=== PATIENT | male | born 1965 | race Caucasian/White ===

== ENCOUNTER 2019-07-20 11:06 | Emergency (ER) | payer OTHER ==
[2019-07-20 11:45] VITALS: TEMP 98.1; BMI 30.8
--- NOTE | 2019-07-20 13:21 | EKG ---
Test Reason : Blood Pressure : / mmHG Vent. Rate : 071 BPM Atrial Rate : 071 BPM P-R Int : 188 ms QRS Dur : 082 ms QT Int : 382 ms P-R-T Axes : 054 049 063 degrees QTc Int : 415 ms NORMAL SINUS RHYTHM NORMAL ECG NO PREVIOUS ECGS AVAILABLE Confirmed by Hernan Bernal ([id number]) on 07/20/2019 1:20:30 PM Referred By: Confirmed By:Hernan Bernal
--- NOTE | 2019-07-20 13:34 | PDOC ---
History of Present Illness - General Chief Complaint: Facial Droop Stated Complaint: SENT BY PCP Time Seen by Provider: 07/20/19 12:02 - History of Present Illness Initial Comments: 54 year old male with PMH of NIDDM presenting with sudden onset right sided facial paralysis three days prior. States that he feels as if he has problems on the left but he clearly has right sided paralysis. Unable to close right eye or drink water from the right side of his mouth. He does have unprotected intercourse with a partner outside of his marriage (his was unfortunately deported recently) but he states they are monogamous. He has denies fevers, chills, nausea, vomiting, penile discharge, dysuria, genital lesions, or other recent illness. 07/20/19 13:37 Past History - Past Medical History Allergies/Adverse Reactions: Allergies Allergy/AdvReac Type Severity Reaction Status Date / Time No Known Allergies Allergy Verified 07/20/19 11:40 Home Medications: Ambulatory Orders Acyclovir [Zovirax -] 400 mg PO 5XD 10 Days #50 tablet 07/20/19 Carboxymethylcellulose Sodium [Artificial Tears] 15 ml OD TID #3 drops 07/20/19 Carboxymethylcellulose Sodium [Artificial Tears] 15 ml OD TID 10 Days drops 07/20/19 Insulin Aspart [Novolog] 0 unit SQ ASDIR 07/20/19 Insulin Degludec [Tresiba] 0 unit SQ ASDIR 07/20/19 Losartan Potassium 50 mg PO DAILY 07/20/19 Ranitidine HCl 150 mg PO DAILY 07/20/19 Sitagliptin Phos/Metformin HCl [Janumet 50-1,000 mg Tablet] 1 each PO DAILY 07/20/19 predniSONE [Deltasone -] 60 mg PO DAILY 7 Days #21 tablet 07/20/19 COPD: No Diabetes: Yes - Psycho Social/Smoking Cessation Hx Smoking History: Never smoked Hx Alcohol Use: No Drug/Substance Use Hx: No Review of Systems - Review of Systems Constitutional: No: Chills, Diaphoresis, Fever HEENTM: No: Eye Pain, Blurred Vision Respiratory: No: Cough, Orthopnea, Shortness of Breath Cardiac (ROS): No: Chest Pain, Edema, Irregular Heart Rate ABD/GI: No: Diarrhea, Nausea, Vomiting : No: Burning, Dysuria, Discharge Integumentary: No: Bruising, Change in Color, Flushing, Lesions, Lumps Neurological: Yes: Other (right sided facial weakness). No: Headache, Numbness, Paresthesia, Tingling Psychiatric: No: Anxiety, Depression Hematologic/Lymphatic: No: Anemia, Blood Clots, Easy Bleeding *Physical Exam - Vital Signs Last Vital Signs Temp Pulse Resp BP Pulse Ox 98.1 F 80 16 104/67 100 07/20/19 11:43 07/20/19 11:43 07/20/19 11:43 07/20/19 11:43 07/20/19 12:13 - Physical Exam General Appearance: Yes: Nourished, Appropriately Dressed. No: Apparent Distress HEENT: positive: EOMI, KERRI, Normal Voice. negative: Normal ENT Inspection (entire right side paralyzed, unable to raise right eyebrow or smile on right. No numbness.), TMs Normal Neck: positive: Trachea midline, Normal Thyroid, Supple. negative: Tender, Rigid Respiratory/Chest: positive: Lungs Clear, Normal Breath Sounds. negative: Chest Tender, Respiratory Distress, Accessory Muscle Use Cardiovascular: positive: Regular Rhythm, Regular Rate Gastrointestinal/Abdominal: positive: Normal Bowel Sounds, Flat, Soft. negative: Tender Rectal Exam: negative: deferred, other Lymphatic: negative: Adenopathy, Tenderness Musculoskeletal: positive: Normal Inspection. negative: CVA Tenderness Extremity: positive: Normal Capillary Refill, Normal Inspection. negative: Normal Range of Motion, Tender Integumentary: positive: Normal Color, Dry, Warm Neurologic: positive: Fully Oriented, Alert, Normal Mood/Affect, Motor Strength 5/5, Facial Droop (right sided). negative: director case II-XII NML intact, Normal Response ED Treatment Course - LABORATORY CBC & Chemistry Diagram: 07/20/19 13:15 07/20/19 13:15 Medical Decision Making - Medical Decision Making 54 year old male with PMH of NIDDM presenting with right sided total facial paralysis of sudden onset three days prior. This is most concernign for Piedra's Palsy. Syphyllis and lyme labs sent. Discharged with steroids and acyclovir with callback placed. 07/20/19 13:48 Discharge - Discharge Information Problems reviewed: Yes Clinical Impression/Diagnosis: Piedra's palsy Disposition: HOME - Admission No - Additional Discharge Information Prescriptions: predniSONE [Deltasone -] 60 mg PO DAILY 7 Days #21 tablet Acyclovir [Zovirax -] 400 mg PO 5XD 10 Days #50 tablet - Follow up/Referral Referrals: Sky Willoughby MD [Primary Care Provider] - Clarence Moya MD [Staff Physician] - - Patient Discharge Instructions Patient Printed Discharge Instructions: DI for Piedra's Palsy Additional Instructions: Please take your acyclovir 5 times per day for 10 days. Please take the prednisone daily (3 pills a day). Please see the neurologist. Please call him and schedule an appointment and say that it is a follow up for Piedra's Palsy. Please tape your right eye shut at night and use the artificial tears daily. Please return to the ED if you have new or worsening symptoms. - Post Discharge Activity
[2019-07-20 13:46] LABS: BASO % 0.6 % (0-2.0); EOS % 5.2 % (0-4.5); HEMATOCRIT 39.8 % (35.4-49); HEMOGLOBIN 13.5 GM/dL (11.7-16.9); LYMPH % 30.2 % (8-40); MCH 28.7 pg (25.7-33.7); MCHC 33.8 g/dl (32.0-35.9); MEAN PLT VOLUME 9.2 fl (7.5-11.1); MONO % 13.7 % (3.8-10.2); NEUT % 50.3 % (42.8-82.8); PLATELET COUNT 133 K/MM3 (134-434); RBC 4.69 M/mm3 (4.00-5.60); RDW 15.4 % (11.9-15.9); WHITE BLOOD COUNT 4.5 K/mm3 (4.0-10.0)
[2019-07-20 14:15] VITALS: BP 108/74; PULSE 74
[2019-07-20 14:20] LABS: ALBUMIN 3.8 g/dl (3.4-5.0); BILIRUBIN,TOTAL 0.5 mg/dL (0.2-1); BLOOD UREA NITROGEN 18.6 mg/dL (7-18); CALCIUM 8.9 mg/dL (8.5-10.1); CREATININE 1.1 mg/dL (0.55-1.3); POTASSIUM 4.2 mmol/L (3.5-5.1); TOT PROT 7.5 g/dl (6.4-8.2)
--- NOTE | 2019-07-20 15:17 | PDOC ---
Documentation entered by Mayte Garg SCRIBE, acting as scribe for Viki Faustin MD. Viki Faustin MD: This documentation has been prepared by the Radha hay Nirvannie, SCRIBE, under my direction and personally reviewed by me in its entirety. I confirm that the documentation accurately reflects all work, treatment, procedures, and medical decision making performed by me. Attending Attestation - Resident Resident Name: Nitesh Carbajal - ED Attending Attestation I have performed the following: I have examined & evaluated the patient, The case was reviewed & discussed with the resident, I agree w/resident's findings & plan, Exceptions are as noted - HPI HPI: 07/20/19 13:56 The patient is a 54 year old male, with a significant past medical history of DM who presents to the emergency department with 3 days of a right facial droop. Patient notes he is unable to raise his right eyebrow, close his right eye, or drink with that side. Patient notes unprotected intercourse with a partner ou tside of his marriage (his was unfortunately deported recently) but he states they are monogamous. He denies any recent sick contacts. Allergies: NKDA Primary Care Physician: Dr. Antonio Willoughby - Physicial Exam PE: 07/20/19 15:16 awake alert lung clear bilat heart rrr no mrg abd soft nt nd ext wwp. CN VII defect right side face, facial drooop involving forehad. strength 5/5 all four ext. speech clear. - Medical Decision Making 07/20/19 15:16 54 yo male with right bells palsy. plan antivirals steroids ,lacrilube drops and dc home. Heart Score/ECG Review #1 General ECG Interpretation: Sinus Rhythm, Normal Rate (71), Normal Intervals, No acute ischemic changes
[2019-07-24 02:06] LABS: IgG Ab 23 kDa Band Absent (.); IgG Ab 28 kDa Band Absent (.)
== END 2019-07-20 15:38 | disposition home or self-care (01) ==
LOC: JER 11:06
DX: G51.0 Bell's palsy (principal); E11.9 Type 2 diabetes mellitus without complications
CPT/HCPCS: 36415; 80053; 85025; 86593; 86618; 93005; 93010; 99284-25

== ENCOUNTER 2022-10-20 16:54 | Inpatient (IN) | payer OTHER ==
[2022-10-20 19:09] LABS: BASO % 0.4 % (0-2.0); EOS % 0.8 % (0-4.5); HEMATOCRIT 17.1 % (35.4-49); LYMPH % 10.6 % (8-40); MCH 25.4 pg (25.7-33.7); MCHC 32.4 g/dl (32.0-35.9); MEAN CELL VOLUME 78.5 fl (80-96); MEAN PLT VOLUME 8.9 fl (7.5-11.1); MONO % 8.5 % (3.8-10.2); NEUT % 79.7 % (42.8-82.8); PLATELET COUNT 167 10^3/uL (134-434); RBC 2.18 M/mm3 (4.00-5.60); RDW 21.2 % (11.9-15.9); WHITE BLOOD COUNT 7.7 K/mm3 (4.0-10.0)
[2022-10-20 19:13] LABS: INR 1.05 (0.83-1.09); PROTHROMBIN TIME (PATIENT) 12.2 SEC (9.7-13.0)
[2022-10-20 19:16] LABS: ACTIVATED PTT 24.9 SECONDS (25.2-36.5)
[2022-10-20 19:18] LABS: HEMOGLOBIN 5.5 GM/dL (11.7-16.9)
[2022-10-20 19:27] LABS: POTASSIUM 4.5 mmol/L (3.5-5.1)
[2022-10-20 19:29] LABS: CALCIUM 8.6 mg/dL (8.5-10.1)
[2022-10-20 19:29] LABS: EPI CELLS 7 /uL (0-25.1); HYALINE CASTS 1 /uL (0-3.1); PH,URINE 5.5 (5.0-8.0); URINE APPEARANCE CLEAR; URINE BACTERIA 23 /uL (0-1359); URINE BILIRUBIN NEGATIVE (NEGATIVE); URINE COLOR YELLOW; URINE GLUCOSE (UA) 3+ (NEGATIVE); URINE KETONE NEGATIVE (NEGATIVE); URINE LEUK ESTERASE 2+ (NEGATIVE); URINE NITRITE NEGATIVE (NEGATIVE); URINE PROTEIN NEGATIVE (NEGATIVE); URINE RBC 17 /uL (0-23.9); URINE UROBILINOGEN 0.2 mg/dL (0.2-1.0); URINE WBC 681 /uL (0-25.8)
[2022-10-20 19:30] LABS: ALBUMIN 2.6 g/dl (3.4-5.0); BLOOD UREA NITROGEN 36.4 mg/dL (7-18)
[2022-10-20 19:33] LABS: CREATININE 1.1 mg/dL (0.55-1.3)
[2022-10-20 19:34] LABS: BILIRUBIN,TOTAL 0.1 mg/dL (0.2-1); TOT PROT 5.7 g/dl (6.4-8.2)
[2022-10-20] MEDS ORDERED: ACETAMINOPHEN 1000 MG/100 ML BAG IVPB ONE (20:13)
[2022-10-20] MEDS ORDERED: PANTOPRAZOLE SODIUM 40 MG VIAL IVPUSH ONE (20:28)
[2022-10-20] MEDS ORDERED: OCTREOTIDE ACETATE 50 MCG/1 ML - 1 ML VIAL IVPUSH ONE (20:29)
[2022-10-20] MEDS ORDERED: PANTOPRAZOLE SODIUM 80 MG in SODIUM CHLORIDE 100 ML IVPB SCH (20:29)
[2022-10-20] MEDS ORDERED: OCTREOTIDE ACETATE 200 MCG, OCTREOTIDE ACETATE 1,000 MCG in DEXTROSE 5%-WATER - 496 ML IVPB SCH (20:30)
[2022-10-20] MEDS ORDERED: PANTOPRAZOLE SODIUM 80 MG/200 ML BAG IVPB ONE (20:50)
[2022-10-20] MEDS ORDERED: INSULIN (NOVOLOG) ASPART 100 UNITS/ML 10ML VIAL SQ ONE (20:56)
[2022-10-20] MEDS ORDERED: OCTREOTIDE ACETATE 100 MCG/1 ML ONE (21:11)
[2022-10-20 21:36] LABS: ANISOCYTOSIS 1+; MACROCYTOSIS 0
[2022-10-20] MEDS ORDERED: DEXTROSE 5%-0.45% SALINE 1,000 ML IV SCH (22:15)
[2022-10-21 00:13] VITALS: BMI 23.4
[2022-10-21] MEDS: SODIUM CHLORIDE 0.45% 1,000 ML IV SCH ×2 (04:51→21:50)
[2022-10-21] MEDS: INSULIN SLIDING SCALE (NOVOLOG) 1 VIAL SQ SCH ×4 (06:00→21:46)
[2022-10-21 08:11] LABS: BASO % 0.5 % (0-2.0); EOS % 4.4 % (0-4.5); HEMATOCRIT 25.3 % (35.4-49); HEMOGLOBIN 8.5 GM/dL (11.7-16.9); LYMPH % 14.2 % (8-40); MCH 26.4 pg (25.7-33.7); MCHC 33.4 g/dl (32.0-35.9); MEAN CELL VOLUME 79.1 fl (80-96); MEAN PLT VOLUME 8.1 fl (7.5-11.1); NEUT % 67.9 % (42.8-82.8); PLATELET COUNT 175 10^3/uL (134-434); RBC 3.21 M/mm3 (4.00-5.60); RDW 18.9 % (11.9-15.9); WHITE BLOOD COUNT 6.1 K/mm3 (4.0-10.0)
[2022-10-21 08:19] LABS: POTASSIUM 4.3 mmol/L (3.5-5.1)
[2022-10-21 08:22] LABS: CALCIUM 8.5 mg/dL (8.5-10.1)
[2022-10-21 08:23] LABS: ALBUMIN 2.6 g/dl (3.4-5.0); BLOOD UREA NITROGEN 28.4 mg/dL (7-18)
[2022-10-21 08:26] LABS: CREATININE 0.9 mg/dL (0.55-1.3)
[2022-10-21 08:27] LABS: BILIRUBIN,TOTAL 0.9 mg/dL (0.2-1); TOT PROT 6.1 g/dl (6.4-8.2)
[2022-10-21] MEDS: TAMSULOSIN HCL 0.4 MG CAP PO SCH (08:30)
[2022-10-21] MEDS ORDERED: ACETAMINOPHEN 1000 MG/100 ML BAG IVPB ONE (10:00)
[2022-10-21] MEDS ORDERED: PEG 3350/NA SULF BICARB CL/KCL 4000 ML SOLN.RECON PO ONE (15:25)
[2022-10-21] MEDS ORDERED: INSULIN (NOVOLOG) ASPART 100 UNITS/ML 10ML VIAL ONE ×2 (16:43→21:43)
[2022-10-21] MEDS ORDERED: BISACODYL 5 MG TABLET.DR (FP) PO ONE (20:00)
[2022-10-22] MEDS: INSULIN SLIDING SCALE (NOVOLOG) 1 VIAL SQ SCH ×4 (06:26→21:51)
[2022-10-22 08:17] LABS: BASO % 0.5 % (0-2.0); EOS % 5.4 % (0-4.5); HEMATOCRIT 23.9 % (35.4-49); LYMPH % 18.8 % (8-40); MCH 27.4 pg (25.7-33.7); MCHC 33.6 g/dl (32.0-35.9); MEAN CELL VOLUME 81.6 fl (80-96); MEAN PLT VOLUME 8.1 fl (7.5-11.1); MONO % 12.8 % (3.8-10.2); NEUT % 62.5 % (42.8-82.8); PLATELET COUNT 180 10^3/uL (134-434); RBC 2.93 M/mm3 (4.00-5.60); RDW 18.8 % (11.9-15.9); WHITE BLOOD COUNT 4.9 K/mm3 (4.0-10.0)
[2022-10-22 08:35] LABS: POTASSIUM 3.9 mmol/L (3.5-5.1)
[2022-10-22] MEDS: TAMSULOSIN HCL 0.4 MG CAP PO SCH (08:35)
[2022-10-22 08:44] LABS: ALBUMIN 2.5 g/dl (3.4-5.0); BLOOD UREA NITROGEN 14.5 mg/dL (7-18); CALCIUM 8.5 mg/dL (8.5-10.1)
[2022-10-22 08:47] LABS: CREATININE 0.8 mg/dL (0.55-1.3)
[2022-10-22 08:48] LABS: BILIRUBIN,TOTAL 0.5 mg/dL (0.2-1)
[2022-10-22] MEDS: PANTOPRAZOLE 40 MG TABLET PO SCH (09:50)
[2022-10-22] MEDS ORDERED: INSULIN (NOVOLOG) ASPART 100 UNITS/ML 10ML VIAL ONE ×3 (13:26→21:49)
[2022-10-22] MEDS ORDERED: ACETAMINOPHEN 325 MG TABLET (FP) PO ONE (20:55)
[2022-10-22] MEDS: SODIUM CHLORIDE 0.45% 1,000 ML IV SCH (21:54)
[2022-10-23] MEDS ORDERED: INSULIN (NOVOLOG) ASPART 100 UNITS/ML 10ML VIAL ONE (06:00)
[2022-10-23] MEDS: INSULIN SLIDING SCALE (NOVOLOG) 1 VIAL SQ SCH ×4 (06:08→23:31)
[2022-10-23 08:16] LABS: BASO % 0.7 % (0-2.0); EOS % 5.3 % (0-4.5); HEMATOCRIT 26.2 % (35.4-49); HEMOGLOBIN 8.8 GM/dL (11.7-16.9); LYMPH % 21.2 % (8-40); MCH 27.3 pg (25.7-33.7); MCHC 33.5 g/dl (32.0-35.9); MEAN CELL VOLUME 81.5 fl (80-96); MONO % 11.2 % (3.8-10.2); NEUT % 61.6 % (42.8-82.8); PLATELET COUNT 188 10^3/uL (134-434); RBC 3.21 M/mm3 (4.00-5.60); RDW 18.9 % (11.9-15.9); WHITE BLOOD COUNT 5.2 K/mm3 (4.0-10.0)
[2022-10-23 08:21] LABS: POTASSIUM 4.2 mmol/L (3.5-5.1)
[2022-10-23 08:36] LABS: CALCIUM 8.5 mg/dL (8.5-10.1)
[2022-10-23 08:38] LABS: BLOOD UREA NITROGEN 9.2 mg/dL (7-18)
[2022-10-23 08:40] LABS: ALBUMIN 2.6 g/dl (3.4-5.0)
[2022-10-23 08:41] LABS: BILIRUBIN,TOTAL 0.4 mg/dL (0.2-1); CREATININE 0.8 mg/dL (0.55-1.3); TOT PROT 6.3 g/dl (6.4-8.2)
[2022-10-23] MEDS: TAMSULOSIN HCL 0.4 MG CAP PO SCH (09:03)
[2022-10-23] MEDS: PANTOPRAZOLE 40 MG TABLET PO SCH (09:03)
[2022-10-23] MEDS: SODIUM CHLORIDE 0.45% 1,000 ML IV SCH ×2 (17:05→23:29)
[2022-10-24] MEDS: INSULIN SLIDING SCALE (NOVOLOG) 1 VIAL SQ SCH ×4 (06:45→21:29)
[2022-10-24] MEDS: PANTOPRAZOLE 40 MG TABLET PO SCH (10:01)
[2022-10-24] MEDS: TAMSULOSIN HCL 0.4 MG CAP PO SCH (10:01)
[2022-10-24] MEDS ORDERED: INSULIN (NOVOLOG) ASPART 100 UNITS/ML 10ML VIAL ONE (21:28)
[2022-10-24] MEDS: SODIUM CHLORIDE 0.45% 1,000 ML IV SCH (21:30)
[2022-10-25] MEDS ORDERED: INSULIN (NOVOLOG) ASPART 100 UNITS/ML 10ML VIAL ONE ×3 (05:41→22:16)
[2022-10-25] MEDS: INSULIN SLIDING SCALE (NOVOLOG) 1 VIAL SQ SCH ×4 (06:23→22:38)
[2022-10-25] MEDS: PANTOPRAZOLE 40 MG TABLET PO SCH (09:38)
[2022-10-25] MEDS: TAMSULOSIN HCL 0.4 MG CAP PO SCH (09:38)
[2022-10-25] MEDS ORDERED: MAG HYDROX/AL HYDROX/SIMETH 30 ML UNIT-DOSE CUP PO ONE (22:45)
[2022-10-26] MEDS: INSULIN SLIDING SCALE (NOVOLOG) 1 VIAL SQ SCH ×4 (06:09→22:05)
[2022-10-26] MEDS ORDERED: INSULIN (NOVOLOG) ASPART 100 UNITS/ML 10ML VIAL ONE ×3 (06:12→21:44)
[2022-10-26 06:40] LABS: BASO % 0.6 % (0-2.0); EOS % 6.6 % (0-4.5); HEMATOCRIT 25.6 % (35.4-49); HEMOGLOBIN 8.3 GM/dL (11.7-16.9); LYMPH % 20.5 % (8-40); MCH 26.5 pg (25.7-33.7); MCHC 32.7 g/dl (32.0-35.9); MEAN CELL VOLUME 81.2 fl (80-96); MEAN PLT VOLUME 8.1 fl (7.5-11.1); MONO % 11.7 % (3.8-10.2); NEUT % 60.6 % (42.8-82.8); PLATELET COUNT 201 10^3/uL (134-434); RBC 3.15 M/mm3 (4.00-5.60); RDW 18.1 % (11.9-15.9); WHITE BLOOD COUNT 4.5 K/mm3 (4.0-10.0)
[2022-10-26 06:57] LABS: POTASSIUM 4.3 mmol/L (3.5-5.1)
[2022-10-26 06:59] LABS: CALCIUM 8.4 mg/dL (8.5-10.1)
[2022-10-26 07:00] LABS: ALBUMIN 2.7 g/dl (3.4-5.0); BLOOD UREA NITROGEN 10.4 mg/dL (7-18)
[2022-10-26 07:03] LABS: CREATININE 0.9 mg/dL (0.55-1.3)
[2022-10-26 07:04] LABS: TOT PROT 6.4 g/dl (6.4-8.2)
[2022-10-26 07:05] LABS: BILIRUBIN,TOTAL 0.4 mg/dL (0.2-1)
[2022-10-26] MEDS: TAMSULOSIN HCL 0.4 MG CAP PO SCH (09:55)
[2022-10-26] MEDS: PANTOPRAZOLE 40 MG TABLET PO SCH (09:55)
[2022-10-27] MEDS: INSULIN SLIDING SCALE (NOVOLOG) 1 VIAL SQ SCH ×4 (06:36→21:55)
[2022-10-27] MEDS: TAMSULOSIN HCL 0.4 MG CAP PO SCH (09:09)
[2022-10-27] MEDS: PANTOPRAZOLE 40 MG TABLET PO SCH (09:09)
[2022-10-27] MEDS ORDERED: INSULIN (NOVOLOG) ASPART 100 UNITS/ML 10ML VIAL ONE ×3 (11:55→21:33)
[2022-10-28] MEDS ORDERED: INSULIN (NOVOLOG) ASPART 100 UNITS/ML 10ML VIAL ONE (05:44)
[2022-10-28] MEDS: INSULIN SLIDING SCALE (NOVOLOG) 1 VIAL SQ SCH ×3 (06:13→17:04)
[2022-10-28 07:30] LABS: BASO % 0.7 % (0-2.0); EOS % 7.4 % (0-4.5); HEMATOCRIT 25.7 % (35.4-49); HEMOGLOBIN 8.5 GM/dL (11.7-16.9); LYMPH % 18.5 % (8-40); MCH 26.9 pg (25.7-33.7); MCHC 33.1 g/dl (32.0-35.9); MEAN CELL VOLUME 81.3 fl (80-96); MEAN PLT VOLUME 8.6 fl (7.5-11.1); MONO % 9.9 % (3.8-10.2); NEUT % 63.5 % (42.8-82.8); PLATELET COUNT 210 10^3/uL (134-434); RBC 3.16 M/mm3 (4.00-5.60); RDW 17.5 % (11.9-15.9); WHITE BLOOD COUNT 4.2 K/mm3 (4.0-10.0)
[2022-10-28 07:36] LABS: POTASSIUM 4.6 mmol/L (3.5-5.1)
[2022-10-28 07:39] LABS: ALBUMIN 2.9 g/dl (3.4-5.0); BLOOD UREA NITROGEN 18.5 mg/dL (7-18)
[2022-10-28 07:40] LABS: CALCIUM 8.8 mg/dL (8.5-10.1)
[2022-10-28 07:42] LABS: CREATININE 1.1 mg/dL (0.55-1.3)
[2022-10-28 07:43] LABS: BILIRUBIN,TOTAL 0.3 mg/dL (0.2-1); TOT PROT 6.6 g/dl (6.4-8.2)
[2022-10-28] MEDS: PANTOPRAZOLE 40 MG TABLET PO SCH (09:56)
[2022-10-28] MEDS: TAMSULOSIN HCL 0.4 MG CAP PO SCH (09:56)
[2022-10-28 14:46] VITALS: PULSE 79; RESP 22; TEMP 98.2
[2022-10-28 14:52] VITALS: BP 100/50
== END 2022-10-28 18:33 | disposition home or self-care (01) | DRG 378 ==
LOC: JER 16:54 → JERBED 20:23 → J4W 21:53
PROVIDERS: ADMIT Internal Medicine; ATTEND Internal Medicine
PROC: 0DBA8ZX Excision of Jejunum, Via Natural or Artificial Opening Endoscopic, Diagnostic (ICD-10-PCS; 2022-10-21)
PROC: 0DB98ZX Excision of Duodenum, Via Natural or Artificial Opening Endoscopic, Diagnostic (ICD-10-PCS; principal; 2022-10-21 13:45)
PROC: 0DB68ZX Excision of Stomach, Via Natural or Artificial Opening Endoscopic, Diagnostic (ICD-10-PCS; 2022-10-21 13:45)
PROC: 0DBB8ZX Excision of Ileum, Via Natural or Artificial Opening Endoscopic, Diagnostic (ICD-10-PCS; 2022-10-22)
DX: K92.2 Gastrointestinal hemorrhage, unspecified (principal); D62 Acute posthemorrhagic anemia; E11.9 Type 2 diabetes mellitus without complications; K21.9 Gastro-esophageal reflux disease without esophagitis; R63.4 Abnormal weight loss; F10.10 Alcohol abuse, uncomplicated; K29.60 Other gastritis without bleeding; K63.5 Polyp of colon; K44.9 Diaphragmatic hernia without obstruction or gangrene; Z79.4 Long term (current) use of insulin; K64.8 Other hemorrhoids; N40.0 Benign prostatic hyperplasia without lower urinary tract symptoms; D64.9 Anemia, unspecified; R91.1 Solitary pulmonary nodule; R59.0 Localized enlarged lymph nodes
CPT/HCPCS: 36415; 36430; 71045-TC-FY; 74177-TC; 80053; 81003; 82150; 82272; 82378; 82728; 82962; 83540; 83550; 83690; 84484; 85025; 85045; 85610; 85730; 86140; 86850; 86900; 86901; 86922; 87086; 88305-TC; 93005; 93010; 99285-25; P9038; P9058; Q9967

== ENCOUNTER 2023-06-17 02:16 | Emergency (ER) | payer OTHER ==
[2023-06-17 02:30] VITALS: RESP 18; BMI 21.4
[2023-06-17 02:46] VITALS: TEMP 98.4
[2023-06-17] MEDS: LACTATED RINGERS SOLUTION 1000 ML INFUS.BAG IV ONE (04:30)
[2023-06-17] MEDS ORDERED: ONDANSETRON 4 MG/2 ML VIAL ONE (04:32)
[2023-06-17] MEDS ORDERED: PIPERACILLIN/TAZOB 4.5 GM 4.5 GM/100 ML BAG IVPB ONE (04:32)
[2023-06-17] MEDS ORDERED: VANCOMYCIN 1 GRAM (PRE-DOCKED) 1,000 MG/250 ML BAG IVPB ONE (04:32)
[2023-06-17] MEDS: morphine SULFATE 4 MG/ML VIAL IM ONE (04:40)
[2023-06-17 04:43] LABS: HEMATOCRIT 23.8 % (35.4-49); HEMOGLOBIN 7.7 GM/dL (11.7-16.9); MCH 23.7 pg (25.7-33.7); MCHC 32.2 g/dl (32.0-35.9); MEAN CELL VOLUME 73.6 fl (80-96); MEAN PLT VOLUME 7.6 fl (7.5-11.1); PLATELET COUNT 553 10^3/uL (134-434); RBC 3.24 M/mm3 (4.00-5.60); RDW 25.9 % (11.9-15.9); WHITE BLOOD COUNT 24.2 K/mm3 (4.0-10.0)
[2023-06-17 04:44] VITALS: BP 95/56
[2023-06-17] MEDS: PIPERACILLIN/TAZOB 4.5 GM 4.5 GM in DEXTROSE 5%-WATER 100 ML IVPB ONE (04:45)
[2023-06-17] MEDS: ONDANSETRON 4 MG/2 ML VIAL IVPUSH ONE (04:45)
[2023-06-17 04:58] VITALS: PULSE 80
[2023-06-17 05:01] LABS: INR 1.2 (0.83-1.09); PROTHROMBIN TIME (PATIENT) 13.9 SEC (9.7-13.0)
[2023-06-17 05:02] LABS: POTASSIUM 4.7 mmol/L (3.5-5.1); VENOUS O2 SATURATION 79.1 % (70-80); VENOUS PCO2 38.5 mmHg (38-52); VENOUS PH 7.404 (7.310-7.410)
[2023-06-17 05:04] LABS: ACTIVATED PTT 29.9 SECONDS (25.2-36.5); ALBUMIN 2.2 g/dl (3.4-5.0); BLOOD UREA NITROGEN 30.1 mg/dL (7-18); CALCIUM 8.9 mg/dL (8.5-10.1)
[2023-06-17 05:07] LABS: CREATININE 1.2 mg/dL (0.55-1.3)
[2023-06-17 05:09] LABS: BILIRUBIN,TOTAL 0.4 mg/dL (0.2-1); TOT PROT 6.7 g/dl (6.4-8.2)
[2023-06-17] MEDS: VANCOMYCIN 1,000 MG in DEXTROSE 5%-WATER - 250 ML IVPB ONE (05:09)
[2023-06-17 07:10] LABS: OVALOCYTE 1+
[2023-06-17 07:11] LABS: PLATELET ESTIMATE 550; ROULEAU 1+
== END 2023-06-17 05:38 | disposition short-term general hospital (02) ==
LOC: JER 02:16
PROC: 3E03329 Introduction of Other Anti-infective into Peripheral Vein, Percutaneous Approach (ICD-10-PCS; principal; 2023-06-17)
PROC: 3E03329 Introduction of Other Anti-infective into Peripheral Vein, Percutaneous Approach (ICD-10-PCS; 2023-06-17)
PROC: 3E033GC Introduction of Other Therapeutic Substance into Peripheral Vein, Percutaneous Approach (ICD-10-PCS; 2023-06-17)
PROC: 3E033GC Introduction of Other Therapeutic Substance into Peripheral Vein, Percutaneous Approach (ICD-10-PCS; 2023-06-17)
DX: R10.12 Left upper quadrant pain (principal); R10.32 Left lower quadrant pain; L02.211 Cutaneous abscess of abdominal wall; Z20.822 Contact with and (suspected) exposure to COVID-19
CPT/HCPCS: 0241U-QW; 36415; 80053; 82803; 83605; 85025; 85610; 85730; 86850; 86900; 86901; 93005; 93010; 99285-25

== ENCOUNTER 2023-10-02 13:11 | Inpatient (IN) | payer OTHER ==
[2023-10-02] MEDS: ONDANSETRON 4 MG/2 ML VIAL IVPUSH ONE (13:45)
[2023-10-02] MEDS: SODIUM CHLORIDE 1,000 ML IV STA ×3 (13:45→14:56)
[2023-10-02] MEDS: FAMOTIDINE 20 MG/50 ML IVPB 20 MG/50 ML MG IVPB ONE (13:45)
[2023-10-02] MEDS: ACETAMINOPHEN 1000 MG/100 ML BAG IVPB ONE (13:45)
[2023-10-02] MEDS ORDERED: ONDANSETRON 4 MG/2 ML VIAL ONE (13:52)
[2023-10-02] MEDS ORDERED: ACETAMINOPHEN INJECTION 100 ML IVPB ONE ×2 (13:52→21:11)
[2023-10-02] MEDS ORDERED: FAMOTIDINE 10 MG/ML VIAL IVPB ONE (13:53)
[2023-10-02 14:01] LABS: HEMATOCRIT 37.6 % (35.4-49); HEMOGLOBIN 12.5 GM/dL (11.7-16.9); MCH 30.6 pg (25.7-33.7); MCHC 33.2 g/dl (32.0-35.9); MEAN CELL VOLUME 92.1 fl (80-96); MEAN PLT VOLUME 7.8 fl (7.5-11.1); PLATELET COUNT 211 10^3/uL (134-434); RBC 4.09 M/mm3 (4.00-5.60); RDW 14.9 % (11.9-15.9); VENOUS BASE EXCESS -4.5 mmol/L (-2-2); VENOUS O2 SATURATION 30.7 % (70-80); VENOUS PCO2 41.3 mmHg (38-52); VENOUS PH 7.328 (7.310-7.410); WHITE BLOOD COUNT 8.1 K/mm3 (4.0-10.0)
[2023-10-02] MEDS ORDERED: PIPERACILLIN/TAZOB 4.5 GM 4.5 GM/100 ML BAG IVPB ONE (14:14)
[2023-10-02] MEDS ORDERED: FENTANYL CITRATE/PF 50 MCG/ML VIAL ONE ×2 (14:14→17:44)
[2023-10-02] MEDS: PIPERACILLIN/TAZOB 4.5 GM 4.5 GM in DEXTROSE 5%-WATER 100 ML IVPB ONE (14:18)
[2023-10-02 14:20] LABS: POTASSIUM 3.8 mmol/L (3.5-5.1)
[2023-10-02 14:21] LABS: MAGNESIUM 1.3 mg/dL (1.8-2.4)
[2023-10-02 14:24] LABS: CALCIUM 9.2 mg/dL (8.5-10.1)
[2023-10-02 14:25] LABS: BLOOD UREA NITROGEN 25.7 mg/dL (7-18)
[2023-10-02 14:28] LABS: CREATININE 1.2 mg/dL (0.55-1.3)
[2023-10-02 14:28] LABS: LACTIC ACID 4.4 mmol/L (0.4-2.0)
[2023-10-02 14:29] LABS: BILIRUBIN,TOTAL 0.6 mg/dL (0.2-1); TOT PROT 7.5 g/dl (6.4-8.2)
[2023-10-02 14:31] LABS: PROTHROMBIN TIME (PATIENT) 11.3 SEC (9.7-13.0)
[2023-10-02 14:57] LABS: ANISOCYTOSIS 1+; MACROCYTOSIS 0
[2023-10-02] MEDS ORDERED: VANCOMYCIN/WATER 1250 MG 1,250 MG/250 ML BAG IVPB ONE ×2 (15:06→15:07)
[2023-10-02] MEDS: VANCOMYCIN/WATER 1250 MG 1,250 MG/250 ML BAG IVPB ONE (15:08)
[2023-10-02] MEDS ORDERED: DEXTROSE 50%-WATER 25 GM/50 ML DISP.SYRIN ONE (15:43)
[2023-10-02] MEDS ORDERED: NOREPINEPHRINE 0.9 % NACL 8 MG/250 ML BAG IVPB ONE (15:46)
[2023-10-02] MEDS: DEXTROSE 50%-WATER - 25 GM/50 ML VIAL IVPUSH ONE (15:54)
[2023-10-02] MEDS ORDERED: LIDOCAINE 2.5%/PRILOCAINE 2.5% (5 Gram/TUBE) TP ONE (16:39)
[2023-10-02 16:44] LABS: LACTIC ACID 3.9 mmol/L (0.4-2.0)
[2023-10-02] MEDS: NOREPINEPHRINE BITARTRATE 4,000 MCG in DEXTROSE 5%-WATER - 496 ML IV SCH (17:36)
[2023-10-02] MEDS: HYDROCORTISONE SOD SUCCINATE 100 MG/2 ML VIAL IVPB ONE (17:37)
[2023-10-02] MEDS ORDERED: HYDROCORTISONE SOD SUCCINATE 100 MG/2 ML VIAL ONE (17:38)
[2023-10-02] MEDS: LACTATED RINGERS SOLUTION 1,000 ML/1,000 ML INFUS.BAG IV SCH (19:00)
[2023-10-02] MEDS ORDERED: PIPERACILLIN/TAZOB 4.5 GM 4.5 GM in DEXTROSE 5%-WATER 100 ML IVPB SCH (20:00)
[2023-10-02] MEDS ORDERED: HYDROmorphone HCl 2 MG/ML VIAL ONE (21:10)
[2023-10-02] MEDS: HYDROmorphone HCl 2 MG/ML VIAL IVPUSH PRN (21:30)
[2023-10-02] MEDS: ACETAMINOPHEN 1000 MG/100 ML BAG IVPB PRN (21:30)
[2023-10-02] MEDS ORDERED: INSULIN ASPART SLIDING SCALE (NOVOLOG) 1 VIAL SQ SCH (22:00)
[2023-10-02 22:39] LABS: HEMATOCRIT 32.1 % (35.4-49); HEMOGLOBIN 10.6 GM/dL (11.7-16.9); MCH 30.3 pg (25.7-33.7); MCHC 33.1 g/dl (32.0-35.9); MEAN CELL VOLUME 91.5 fl (80-96); MEAN PLT VOLUME 8.3 fl (7.5-11.1); PLATELET COUNT 170 10^3/uL (134-434); RBC 3.51 M/mm3 (4.00-5.60); RDW 15.4 % (11.9-15.9)
[2023-10-02 22:42] LABS: EPI CELLS 5 /uL (0-25.1); HYALINE CASTS 1 /uL (0-3.1); URINE APPEARANCE CLOUDY; URINE BACTERIA 1537 /uL (0-1359); URINE BILIRUBIN NEGATIVE (NEGATIVE); URINE COLOR YELLOW; URINE GLUCOSE (UA) 2+ (NEGATIVE); URINE KETONE TRACE (NEGATIVE); URINE LEUK ESTERASE 1+ (NEGATIVE); URINE NITRITE POSITIVE (NEGATIVE); URINE PROTEIN 2+ (NEGATIVE); URINE RBC 79 /uL (0-23.9); URINE UROBILINOGEN 0.2 mg/dL (0.2-1.0); URINE WBC 704 /uL (0-25.8)
[2023-10-02] MEDS: PIPERACILLIN/TAZOB 4.5 GM 4.5 GM in DEXTROSE 5%-WATER 100 ML IVPB SCH (22:46)
[2023-10-02] MEDS: NOREPINEPHRINE BITARTRATE/D5W 8 MG/250 ML BAG IVPB SCH (22:46)
[2023-10-02] MEDS: MUPIROCIN 2% TOPICAL OINTMENT FOR DECOLONIZATION NS SCH (22:46)
[2023-10-02] MEDS: CHLORHEXIDINE GLUCONATE 4% CLEANSER FOR DECOLONIZATION TP SCH (22:46)
[2023-10-02] MEDS: INSULIN ASPART SLIDING SCALE (NOVOLOG) 1 VIAL SQ SCH (22:47)
[2023-10-02 22:58] LABS: POTASSIUM 3.4 mmol/L (3.5-5.1)
[2023-10-02 23:01] LABS: BLOOD UREA NITROGEN 27.8 mg/dL (7-18)
[2023-10-02 23:04] LABS: CREATININE 1.5 mg/dL (0.55-1.3)
[2023-10-02 23:05] LABS: TOT PROT 5.7 g/dl (6.4-8.2)
[2023-10-02 23:06] LABS: BILIRUBIN,TOTAL 0.7 mg/dL (0.2-1)
[2023-10-02 23:15] LABS: ANISOCYTOSIS 1+; MACROCYTOSIS 0; OVALOCYTE 1+
[2023-10-02 23:18] LABS: PLATELET ESTIMATE ADEQUATE
[2023-10-02 23:20] LABS: LACTIC ACID 4.1 mmol/L (0.4-2.0)
[2023-10-02 23:22] LABS: WHITE BLOOD COUNT 31.8 K/mm3 (4.0-10.0)
[2023-10-02 23:46] LABS: YEAST NONE SEEN (NEGATIVE)
[2023-10-03] MEDS: HYDROmorphone HCl 2 MG/ML VIAL IVPUSH PRN (01:38)
[2023-10-03] MEDS: MAGNESIUM SULF 50% (8.12 MEQ/2 ML-1 GM VIAL) IVPB ONE (01:47)
[2023-10-03] MEDS: VANCOMYCIN/WATER FOR INJ (PEG) 1,000 MG/200 ML BAG IVPB SCH ×2 (02:02→14:48)
[2023-10-03] MEDS: ONDANSETRON 4 MG/2 ML VIAL IVPUSH ONE (04:33)
[2023-10-03] MEDS: HYDROmorphone HCl 2 MG/ML VIAL IVPUSH ONE (04:42)
[2023-10-03] MEDS: KCL 20 MEQ PREMIX BAG 20 MEQ/100 ML INFUS.BAG IVPB SCH (04:45)
[2023-10-03] MEDS ORDERED: VASopressin 20 UNITS/ML VIAL IV ONE (05:14)
[2023-10-03] MEDS: VASopressin 40 UNITS/100 ML BAG IV SCH (05:25)
[2023-10-03 08:34] LABS: INR 1.32 (0.83-1.09); PROTHROMBIN TIME (PATIENT) 15.1 SEC (9.7-13.0)
[2023-10-03 08:36] LABS: ACTIVATED PTT 35.3 SECONDS (25.2-36.5)
[2023-10-03 08:46] LABS: POTASSIUM 4.1 mmol/L (3.5-5.1)
[2023-10-03 08:47] LABS: CALCIUM 7.9 mg/dL (8.5-10.1)
[2023-10-03 08:48] LABS: ALBUMIN 2.9 g/dl (3.4-5.0); BLOOD UREA NITROGEN 31.1 mg/dL (7-18); MAGNESIUM 1.4 mg/dL (1.8-2.4)
[2023-10-03 08:51] LABS: CREATININE 1.4 mg/dL (0.55-1.3); PHOSPHOROUS 4.6 mg/dL (2.5-4.9)
[2023-10-03 08:52] LABS: BILIRUBIN,TOTAL 0.7 mg/dL (0.2-1); TOT PROT 5.7 g/dl (6.4-8.2)
[2023-10-03 08:55] LABS: HEMATOCRIT 31.7 % (35.4-49); HEMOGLOBIN 10.5 GM/dL (11.7-16.9); MCH 30.5 pg (25.7-33.7); MCHC 33.2 g/dl (32.0-35.9); MEAN CELL VOLUME 91.9 fl (80-96); MEAN PLT VOLUME 8.8 fl (7.5-11.1); PLATELET COUNT 161 10^3/uL (134-434); RBC 3.45 M/mm3 (4.00-5.60); RDW 15.2 % (11.9-15.9)
[2023-10-03] MEDS: PANTOPRAZOLE SODIUM 40 MG VIAL IVPUSH SCH ×2 (09:02→21:56)
[2023-10-03 09:06] LABS: WHITE BLOOD COUNT 42.2 K/mm3 (4.0-10.0)
[2023-10-03] MEDS: MAGNESIUM 2GM/50ML STERILE WATER IVPB IVPB ONE (09:56)
[2023-10-03] MEDS ORDERED: LACTATED RINGERS SOLUTION 1,000 ML/1,000 ML INFUS.BAG IV SCH (10:07)
[2023-10-03] MEDS: ONDANSETRON 4 MG/2 ML VIAL IVPUSH PRN (11:08)
[2023-10-03] MEDS: MEROPENEM 1 GM in DEXTROSE 5%-WATER 100 ML IVPB SCH (11:14)
[2023-10-03] MEDS: HYDROCORTISONE SOD SUCCINATE 100 MG/2 ML VIAL IVPUSH SCH (11:15)
[2023-10-03] MEDS: D5-LR+20 MEQ KCL - 20 MEQ/1,000 ML INFUS.BAG IV SCH (11:19)
[2023-10-03] MEDS: ACETAMINOPHEN 1000 MG/100 ML BAG IVPB PRN (14:51)
[2023-10-03] MEDS: INSULIN ASPART SLIDING SCALE (NOVOLOG) 1 VIAL SQ SCH (22:02)
[2023-10-03] MEDS ORDERED: INSULIN (NOVOLOG) ASPART 100 UNITS/ML 10ML VIAL ONE (22:28)
[2023-10-04 07:15] LABS: HEMATOCRIT 31.9 % (35.4-49); HEMOGLOBIN 10.7 GM/dL (11.7-16.9); MCH 30.4 pg (25.7-33.7); MCHC 33.6 g/dl (32.0-35.9); MEAN CELL VOLUME 90.6 fl (80-96); MEAN PLT VOLUME 9.5 fl (7.5-11.1); PLATELET COUNT 131 10^3/uL (134-434); RBC 3.52 M/mm3 (4.00-5.60); RDW 15.2 % (11.9-15.9)
[2023-10-04 07:20] LABS: POTASSIUM 4.5 mmol/L (3.5-5.1)
[2023-10-04 07:23] LABS: ALBUMIN 2.8 g/dl (3.4-5.0); BLOOD UREA NITROGEN 31.4 mg/dL (7-18); CALCIUM 7.6 mg/dL (8.5-10.1); MAGNESIUM 2.1 mg/dL (1.8-2.4)
[2023-10-04 07:25] LABS: BILIRUBIN,DIRECT 0.3 mg/dL (0.0-0.2)
[2023-10-04 07:26] LABS: CREATININE 0.9 mg/dL (0.55-1.3); PHOSPHOROUS 3.5 mg/dL (2.5-4.9)
[2023-10-04 07:27] LABS: BILIRUBIN,TOTAL 0.6 mg/dL (0.2-1); TOT PROT 5.9 g/dl (6.4-8.2)
[2023-10-04 08:06] LABS: WHITE BLOOD COUNT 41.8 K/mm3 (4.0-10.0)
[2023-10-04 09:55] LABS: ANISOCYTOSIS 0; HELMET CELLS 0; HOWELL-JOLLY BODIES 0; MACROCYTOSIS 0; OVALOCYTE 0; ROULEAU 0; SICKELED CELLS 0; TARGET CELLS 0; TEAR DROP CELLS 0; TOXIC GRANULATION 0
[2023-10-04] MEDS ORDERED: VASopressin 20 UNITS/ML VIAL IV ONE (16:03)
[2023-10-04] MEDS ORDERED: INSULIN (NOVOLOG) ASPART 100 UNITS/ML 10ML VIAL ONE ×2 (17:19→17:33)
[2023-10-05 07:03] LABS: HEMATOCRIT 30.1 % (35.4-49); MCH 30.1 pg (25.7-33.7); MCHC 33.2 g/dl (32.0-35.9); MEAN CELL VOLUME 90.5 fl (80-96); MEAN PLT VOLUME 9.6 fl (7.5-11.1); PLATELET COUNT 113 10^3/uL (134-434); RBC 3.32 M/mm3 (4.00-5.60); RDW 15.2 % (11.9-15.9); WHITE BLOOD COUNT 29.7 K/mm3 (4.0-10.0)
[2023-10-05 07:23] LABS: POTASSIUM 4.4 mmol/L (3.5-5.1)
[2023-10-05 07:26] LABS: ALBUMIN 2.8 g/dl (3.4-5.0); BLOOD UREA NITROGEN 43.7 mg/dL (7-18)
[2023-10-05 07:29] LABS: CREATININE 0.8 mg/dL (0.55-1.3); PHOSPHOROUS 2.4 mg/dL (2.5-4.9)
[2023-10-05 07:30] LABS: BILIRUBIN,TOTAL 0.5 mg/dL (0.2-1); TOT PROT 5.7 g/dl (6.4-8.2)
[2023-10-05 07:38] LABS: CALCIUM 8.8 mg/dL (8.5-10.1)
[2023-10-05 09:36] LABS: ANISOCYTOSIS 0; HELMET CELLS 0; HOWELL-JOLLY BODIES 0; MACROCYTOSIS 0; OVALOCYTE 0; ROULEAU 0; SICKELED CELLS 0; TARGET CELLS 0; TEAR DROP CELLS 0; TOXIC GRANULATION 0
[2023-10-06] MEDS ORDERED: INSULIN (NOVOLOG) ASPART 100 UNITS/ML 10ML VIAL ONE ×2 (06:09→11:19)
[2023-10-06 07:03] LABS: MCH 30.1 pg (25.7-33.7); MCHC 33.3 g/dl (32.0-35.9); MEAN CELL VOLUME 90.1 fl (80-96); MEAN PLT VOLUME 9.7 fl (7.5-11.1); PLATELET COUNT 128 10^3/uL (134-434); RBC 3.66 M/mm3 (4.00-5.60); RDW 14.9 % (11.9-15.9); WHITE BLOOD COUNT 14.9 K/mm3 (4.0-10.0)
[2023-10-06 07:26] LABS: POTASSIUM 4.4 mmol/L (3.5-5.1)
[2023-10-06 07:29] LABS: CALCIUM 8.5 mg/dL (8.5-10.1)
[2023-10-06 07:30] LABS: ALBUMIN 2.6 g/dl (3.4-5.0); BLOOD UREA NITROGEN 27.8 mg/dL (7-18); MAGNESIUM 1.7 mg/dL (1.8-2.4)
[2023-10-06 07:33] LABS: CREATININE 0.7 mg/dL (0.55-1.3); PHOSPHOROUS 2.6 mg/dL (2.5-4.9)
[2023-10-06 07:35] LABS: BILIRUBIN,TOTAL 0.5 mg/dL (0.2-1); TOT PROT 5.4 g/dl (6.4-8.2)
[2023-10-06 09:42] LABS: ANISOCYTOSIS 0; MACROCYTOSIS 0
[2023-10-06 10:13] VITALS: RESP 18
[2023-10-06] MEDS: HYDROCORTISONE SOD SUCCINATE 100 MG/2 ML VIAL IVPUSH SCH ×2 (15:40→17:22)
[2023-10-06] MEDS: INSULIN ASPART SLIDING SCALE (NOVOLOG) 1 VIAL SQ SCH (17:21)
[2023-10-06] MEDS: MEROPENEM 1 GM in DEXTROSE 5%-WATER 100 ML IVPB SCH (18:12)
[2023-10-06] MEDS ORDERED: ACETAMINOPHEN 325 MG TABLET (FP) PO PRN (18:33)
[2023-10-06] MEDS: HYDROmorphone HCl 2 MG/ML VIAL IVPUSH PRN (18:45)
[2023-10-06] MEDS: PANTOPRAZOLE SODIUM 40 MG VIAL IVPUSH SCH (21:14)
[2023-10-06] MEDS: ACETAMINOPHEN 325 MG TABLET (FP) PO PRN (22:15)
[2023-10-07 10:52] LABS: HEMATOCRIT 34.7 % (35.4-49); HEMOGLOBIN 11.7 GM/dL (11.7-16.9); MCH 30.2 pg (25.7-33.7); MCHC 33.7 g/dl (32.0-35.9); MEAN CELL VOLUME 89.5 fl (80-96); PLATELET COUNT 152 10^3/uL (134-434); RBC 3.88 M/mm3 (4.00-5.60); RDW 14.8 % (11.9-15.9); WHITE BLOOD COUNT 10.2 K/mm3 (4.0-10.0)
[2023-10-07 11:09] LABS: POTASSIUM 3.6 mmol/L (3.5-5.1)
[2023-10-07 11:11] LABS: BLOOD UREA NITROGEN 20.9 mg/dL (7-18); CALCIUM 8.8 mg/dL (8.5-10.1); MAGNESIUM 1.5 mg/dL (1.8-2.4)
[2023-10-07 11:12] LABS: ALBUMIN 2.7 g/dl (3.4-5.0)
[2023-10-07 11:14] LABS: CREATININE 0.7 mg/dL (0.55-1.3); PHOSPHOROUS 2.6 mg/dL (2.5-4.9)
[2023-10-07 11:16] LABS: TOT PROT 5.5 g/dl (6.4-8.2)
[2023-10-07 11:17] LABS: BILIRUBIN,TOTAL 0.5 mg/dL (0.2-1)
[2023-10-07 11:50] LABS: PLATELET ESTIMATE ADEQUATE
[2023-10-07] MEDS: MAGNESIUM OXIDE 400 MG TABLET (FP) PO ONE (13:43)
[2023-10-08] MEDS: HYDROmorphone HCl 2 MG/ML VIAL IVPUSH PRN (02:09)
[2023-10-08 10:03] LABS: BASO % 0.5 % (0-2.0); EOS % 2.5 % (0-4.5); HEMATOCRIT 36.2 % (35.4-49); HEMOGLOBIN 12.4 GM/dL (11.7-16.9); MCH 30.6 pg (25.7-33.7); MCHC 34.1 g/dl (32.0-35.9); MEAN CELL VOLUME 89.7 fl (80-96); MEAN PLT VOLUME 8.9 fl (7.5-11.1); MONO % 12.2 % (3.8-10.2); NEUT % 77.8 % (42.8-82.8); PLATELET COUNT 195 10^3/uL (134-434); RBC 4.03 M/mm3 (4.00-5.60); RDW 14.7 % (11.9-15.9); WHITE BLOOD COUNT 9.9 K/mm3 (4.0-10.0)
[2023-10-08 10:32] LABS: POTASSIUM 3.7 mmol/L (3.5-5.1)
[2023-10-08 10:33] LABS: ANISOCYTOSIS 0; MACROCYTOSIS 0
[2023-10-08 10:40] LABS: ALBUMIN 2.8 g/dl (3.4-5.0); BILIRUBIN,TOTAL 0.5 mg/dL (0.2-1); BLOOD UREA NITROGEN 16.4 mg/dL (7-18); CREATININE 0.6 mg/dL (0.55-1.3)
[2023-10-08 10:42] LABS: TOT PROT 5.9 g/dl (6.4-8.2)
[2023-10-08 10:43] LABS: CALCIUM 8.7 mg/dL (8.5-10.1)
[2023-10-08 14:41] VITALS: BMI 23.8
[2023-10-08] MEDS ORDERED: MAGNESIUM HYDROX 2400MG/30ML ORAL SUSPENSION 30 ML CUP PO PRN (18:07)
[2023-10-08] MEDS: SENNOSIDES/DOCUSATE COMBO (SENNA PLUS) TABLET (UD) PO PRN (21:29)
[2023-10-09] MEDS: HYDROmorphone HCl 2 MG/ML VIAL IVPB PRN (10:34)
[2023-10-10 06:58] VITALS: BP 123/67; PULSE 63; TEMP 98.3
[2023-10-10 09:08] LABS: HEMATOCRIT 35.9 % (35.4-49); HEMOGLOBIN 12.1 GM/dL (11.7-16.9); MCH 30.6 pg (25.7-33.7); MCHC 33.8 g/dl (32.0-35.9); MEAN CELL VOLUME 90.6 fl (80-96); MEAN PLT VOLUME 8.9 fl (7.5-11.1); PLATELET COUNT 233 10^3/uL (134-434); RBC 3.96 M/mm3 (4.00-5.60); RDW 15.3 % (11.9-15.9); WHITE BLOOD COUNT 8.7 K/mm3 (4.0-10.0)
[2023-10-10 09:16] LABS: POTASSIUM 4.1 mmol/L (3.5-5.1)
[2023-10-10 09:23] LABS: BLOOD UREA NITROGEN 14.4 mg/dL (7-18)
[2023-10-10 09:24] LABS: CREATININE 0.7 mg/dL (0.55-1.3)
[2023-10-10 09:26] LABS: BILIRUBIN,TOTAL 0.7 mg/dL (0.2-1); TOT PROT 5.9 g/dl (6.4-8.2)
[2023-10-10 10:16] LABS: PLATELET ESTIMATE ADEQUATE
== END 2023-10-10 13:38 | disposition home or self-care (01) | DRG 871 ==
LOC: JER 13:11 → JERBED 15:55 → JICU 18:32 → J5S 10-06 16:25
PROVIDERS: ADMIT Internal Medicine; ATTEND Internal Medicine
PROC: 05HF33Z Insertion of Infusion Device into Left Cephalic Vein, Percutaneous Approach (ICD-10-PCS; principal; 2023-10-02)
PROC: B54NZZA Ultrasonography of Left Upper Extremity Veins, Guidance (ICD-10-PCS; 2023-10-02)
PROC: 03HY32Z Insertion of Monitoring Device into Upper Artery, Percutaneous Approach (ICD-10-PCS; 2023-10-03)
PROC: 4A133B1 Monitoring of Arterial Pressure, Peripheral, Percutaneous Approach (ICD-10-PCS; 2023-10-03)
PROC: 4A133J1 Monitoring of Arterial Pulse, Peripheral, Percutaneous Approach (ICD-10-PCS; 2023-10-03)
DX: A41.9 Sepsis, unspecified organism (principal); R65.21 Severe sepsis with septic shock; C83.30 Diffuse large B-cell lymphoma, unspecified site; E87.1 Hypo-osmolality and hyponatremia; I10 Essential (primary) hypertension; E78.5 Hyperlipidemia, unspecified; E11.9 Type 2 diabetes mellitus without complications; D64.9 Anemia, unspecified; N40.0 Benign prostatic hyperplasia without lower urinary tract symptoms; K52.9 Noninfective gastroenteritis and colitis, unspecified
CPT/HCPCS: 0241U-QW; 36415; 71045-TC-FY; 72191-TC; 74018-TC-FY; 74175-TC; 80053; 80076; 81003; 82010; 82533; 82550; 82803; 82962; 83605; 83690; 83735; 83880; 84100; 84484; 85025; 85027; 85610; 85730; 86850; 86900; 86901; 87040; 87076; 87086; 93005; 93010; 97116-GP; 97161-GP; 99291; J0131; J3490; Q9967

== ENCOUNTER 2023-11-25 12:47 | Inpatient (IN) | payer OTHER ==
[2023-11-25] MEDS ORDERED: ONDANSETRON 4 MG/2 ML VIAL ONE (13:39)
[2023-11-25] MEDS ORDERED: ACETAMINOPHEN INJECTION 100 ML IVPB ONE (13:39)
[2023-11-25] MEDS ORDERED: FAMOTIDINE 20 MG/50 ML IVPB 20 MG/50 ML MG IVPB ONE (13:40)
[2023-11-25] MEDS: FAMOTIDINE 20 MG/50 ML IVPB 20 MG/50 ML MG IVPB ONE (14:06)
[2023-11-25] MEDS: SODIUM CHLORIDE 0.9% 500 ML INFUS.BAG IV ONE ×2 (14:06→18:41)
[2023-11-25] MEDS: ONDANSETRON 4 MG/2 ML VIAL IVPUSH ONE (14:06)
[2023-11-25] MEDS ORDERED: FENTANYL CITRATE/PF 50 MCG/ML VIAL ONE (14:17)
[2023-11-25] MEDS: ACETAMINOPHEN 1000 MG/100 ML BAG IVPB ONE (14:26)
[2023-11-25 14:27] LABS: HEMATOCRIT 41.2 % (35.4-49); HEMOGLOBIN 13.9 GM/dL (11.7-16.9); MCH 29.3 pg (25.7-33.7); MCHC 33.7 g/dl (32.0-35.9); MEAN CELL VOLUME 86.9 fl (80-96); MEAN PLT VOLUME 10.1 fl (7.5-11.1); PLATELET COUNT 204 10^3/uL (134-434); RBC 4.74 M/mm3 (4.00-5.60); RDW 15.7 % (11.9-15.9); WHITE BLOOD COUNT 11.2 K/mm3 (4.0-10.0)
[2023-11-25 14:38] LABS: CHLORIDE 102 mmol/L (98-107); SODIUM 136 mmol/L (136-145)
[2023-11-25 14:40] LABS: ALBUMIN 4.1 g/dl (3.4-5.0); CALCIUM 9.7 mg/dL (8.5-10.1); CO2 26 mmol/L (21-32)
[2023-11-25 14:41] LABS: BLOOD UREA NITROGEN 23.1 mg/dL (7-18); GLUCOSE,RANDOM 176 mg/dL (74-106)
[2023-11-25 14:44] LABS: CREATININE 0.9 mg/dL (0.55-1.3); SGOT/AST 55 U/L (15-37); SGPT/ALT 25 U/L (13-61)
[2023-11-25 14:46] LABS: ALK PHOS 101 U/L (45-117); ANION GAP 7 mmol/L (4-13); BILIRUBIN,TOTAL 0.8 mg/dL (0.2-1); POTASSIUM 6.2 mmol/L (3.5-5.1); TOT PROT 7.8 g/dl (6.4-8.2)
[2023-11-25 14:48] LABS: INR 0.99 (0.83-1.09); PROTHROMBIN TIME (PATIENT) 11.2 SEC (9.7-13.0)
[2023-11-25 14:50] LABS: ACTIVATED PTT 28.6 SECONDS (25.2-36.5)
[2023-11-25 15:19] LABS: EPI CELLS 6 /uL (0-25.1); HYALINE CASTS 1 /uL (0-3.1); PH,URINE 5.5 (5.0-8.0); URINE APPEARANCE CLOUDY; URINE BACTERIA >9,000 /uL (0-1359); URINE BILIRUBIN NEGATIVE (NEGATIVE); URINE COLOR YELLOW; URINE GLUCOSE (UA) 3+ (NEGATIVE); URINE KETONE 1+ (NEGATIVE); URINE LEUK ESTERASE 1+ (NEGATIVE); URINE NITRITE NEGATIVE (NEGATIVE); URINE PROTEIN 2+ (NEGATIVE); URINE RBC 17 /uL (0-23.9); URINE UROBILINOGEN 0.2 mg/dL (0.2-1.0); URINE WBC 468 /uL (0-25.8)
[2023-11-25 15:28] LABS: ANISOCYTOSIS 0; MACROCYTOSIS 0
[2023-11-25 15:29] LABS: POTASSIUM 4.1 mmol/L (3.5-5.1)
[2023-11-25 15:31] LABS: CALCIUM 8.5 mg/dL (8.5-10.1)
[2023-11-25 15:31] LABS: PLATELET ESTIMATE ADEQUATE
[2023-11-25 15:32] LABS: BLOOD UREA NITROGEN 24.7 mg/dL (7-18)
[2023-11-25 15:35] LABS: CREATININE 0.9 mg/dL (0.55-1.3)
[2023-11-25] MEDS: CEFTRIAXONE 1,000 MG in DEXTROSE 5%-WATER - 50 ML IVPB ONE (16:14)
[2023-11-25] MEDS ORDERED: PIPERACILLIN/TAZOB 4.5 GM 4.5 GM/100 ML BAG IVPB ONE (16:21)
[2023-11-25] MEDS: PIPERACILLIN/TAZOB 4.5 GM 4.5 GM in DEXTROSE 5%-WATER 100 ML IVPB ONE (16:27)
[2023-11-25] MEDS ORDERED: morphine SULFATE 4 MG/ML VIAL ONE (18:35)
[2023-11-25] MEDS: morphine CARPU-JECT 4 MG/1 ML DISP.SYRIN IVPUSH ONE (19:08)
[2023-11-25] MEDS ORDERED: fentaNYL CITRATE 250 MCG/5 ML VIAL ONE (19:35)
[2023-11-25] MEDS: fentaNYL CITRATE 250 MCG/5 ML VIAL IVPUSH ONE (19:49)
[2023-11-25] MEDS: DEXTROSE 5%-0.45% SALINE 1,000 ML IV SCH (21:02)
[2023-11-25 22:56] VITALS: BMI 23.1
[2023-11-25] MEDS: ACETAMINOPHEN 1000 MG/100 ML BAG IVPB PRN (23:40)
[2023-11-25] MEDS: SODIUM CHLORIDE 500 ML IV STA (23:41)
[2023-11-26 03:36] VITALS: RESP 18
[2023-11-26 10:13] LABS: BASO % 0.7 % (0-2.0); EOS % 2.2 % (0-4.5); HEMOGLOBIN 12.4 GM/dL (11.7-16.9); LYMPH % 12.9 % (8-40); MCHC 34.6 g/dl (32.0-35.9); MEAN CELL VOLUME 86.7 fl (80-96); MEAN PLT VOLUME 9.6 fl (7.5-11.1); MONO % 11.3 % (3.8-10.2); NEUT % 72.9 % (42.8-82.8); PLATELET COUNT 149 10^3/uL (134-434); RBC 4.15 M/mm3 (4.00-5.60); RDW 15.6 % (11.9-15.9); WHITE BLOOD COUNT 5.4 K/mm3 (4.0-10.0)
[2023-11-26 10:16] LABS: POTASSIUM 4.4 mmol/L (3.5-5.1)
[2023-11-26 10:22] LABS: BLOOD UREA NITROGEN 20.5 mg/dL (7-18); CALCIUM 8.9 mg/dL (8.5-10.1)
[2023-11-26 10:26] LABS: CREATININE 0.7 mg/dL (0.55-1.3)
[2023-11-26] MEDS: PIPERACILLIN/TAZOB 3.375 GM 3.375 GM in DEXTROSE 5%-WATER - 50 ML IVPB SCH (16:01)
[2023-11-26] MEDS: INSULIN ASPART SLIDING SCALE (NOVOLOG) 1 VIAL SQ SCH (21:55)
[2023-11-27] MEDS: ACETAMINOPHEN 1000 MG/100 ML BAG IVPB ONE (01:05)
[2023-11-27 06:42] VITALS: PULSE 63
[2023-11-27 10:42] VITALS: BP 124/74; TEMP 98.2
== END 2023-11-27 12:03 | disposition home or self-care (01) | DRG 389 ==
LOC: JER 12:47 → JERBED 17:53 → J5S 21:44
PROVIDERS: ADMIT Internal Medicine; ATTEND Internal Medicine
DX: K56.600 Partial intestinal obstruction, unspecified as to cause (principal); C83.30 Diffuse large B-cell lymphoma, unspecified site; N39.0 Urinary tract infection, site not specified; E10.9 Type 1 diabetes mellitus without complications; I10 Essential (primary) hypertension; E78.5 Hyperlipidemia, unspecified; Z93.3 Colostomy status; N40.0 Benign prostatic hyperplasia without lower urinary tract symptoms
CPT/HCPCS: 36415; 71045-TC-FY; 74177-TC; 80048; 80053; 81003; 82010; 82962; 83605; 83690; 84484; 85025; 85610; 85730; 87077; 87086; 93005; 93010; 99285-25; J0131; Q9967

== ENCOUNTER 2024-10-31 14:07 | Emergency (ER) | payer OTHER ==
[2024-10-31 14:55] VITALS: RESP 18; BMI 22.0
[2024-10-31] MEDS ORDERED: ACETAMINOPHEN 325 MG TABLET (FP) ONE (18:08)
[2024-10-31] MEDS ORDERED: DIPHTH,PERTUSS(ACELL),TET 0.5 ML DISP.SYRIN IM ONE (18:08)
[2024-10-31] MEDS: ACETAMINOPHEN 500 MG TABLET (FP) PO ONE (18:17)
[2024-10-31] MEDS: DIPHTH,PERTUSS(ACELL),TET 0.5 ML DISP.SYRIN IM ONE (18:18)
[2024-10-31] MEDS ORDERED: KETOROLAC TROMETHAMINE 15 MG/ML VIAL ONE (21:28)
[2024-10-31] MEDS: KETOROLAC TROMETHAMINE 30 MG/1 ML VIAL IM ONE (21:39)
[2024-10-31 21:44] VITALS: BP 124/73; PULSE 82; TEMP 98.7
== END 2024-10-31 21:47 | disposition home or self-care (01) ==
LOC: JER 14:07
PROC: 3E0233Z Introduction of Anti-inflammatory into Muscle, Percutaneous Approach (ICD-10-PCS; principal; 2024-10-31)
PROC: 3E0234Z Introduction of Serum, Toxoid and Vaccine into Muscle, Percutaneous Approach (ICD-10-PCS; 2024-10-31)
DX: S00.81XA Abrasion of other part of head, initial encounter (principal); M25.552 Pain in left hip; M25.512 Pain in left shoulder; M25.522 Pain in left elbow; M54.50 Low back pain, unspecified; Z23 Encounter for immunization; Y04.8XXA Assault by other bodily force, initial encounter; Y92.59 Other trade areas as the place of occurrence of the external cause
CPT/HCPCS: 70450-TC; 70486-TC; 71046-TC-FY; 72125-TC; 72131-TC; 72170-TC-FY; 73030-TC-LT-FY; 73060-TC-LT-FY; 73070-TC-LT-FY; 90471; 90715; 96372; 99285-25